=== PATIENT | female | born 1985 | race Asian ===

== ENCOUNTER 2018-10-27 05:50 | Day surgery (SDC) | payer OTHER ==
[~2018-10-27] VITALS: Ht 157.5 cm; Wt 50.8 kg
[2018-10-27] MEDS ORDERED: CEFAZOLIN SOD 1 GM in D5W 50 ML IV ONE (07:00)
[2018-10-27] MEDS ORDERED: LIDOCAINE 2%, 20 ML MDV IM ONE (07:50)
[2018-10-27] MEDS ORDERED: MIDAZOLAM HCL 5 MG/5 ML VIAL IVP ONE (07:50)
[2018-10-27] MEDS ORDERED: fentaNYL CITRATE 250 MCG/5 ML AMP IV ONE (07:50)
[2018-10-27] MEDS ORDERED: SEVOFLURANE 15 MIN GAS INH ONE (07:50)
[2018-10-27] MEDS ORDERED: PHENYLEPHRINE HCL 10 MG/ML VIAL (NEOSYNEPHRINE) IV ONE (07:50)
[2018-10-27] MEDS ORDERED: PROPOFOL 200MG/ 20ML VIAL (DIPRIVAN) IV ONE (07:50)
[2018-10-27] MEDS ORDERED: ONDANSETRON HCL 4 MG/2 ML VIAL IVP ONE (07:50)
[2018-10-27] MEDS ORDERED: BUPIVACAINE /PF 0.5% 30 ML VIAL INJ ONE (07:50)
[2018-10-27] MEDS ORDERED: LR 1,000 ML IV.SOLN IV ONE (07:50)
[2018-10-27] MEDS ORDERED: NS 1000 ML IV.SOLN IV ONE (07:50)
[2018-10-27] MEDS ORDERED: KETOROLAC TROMETHAMINE 30 MG VIAL IVP ONE (07:50)
[2018-10-27] MEDS ORDERED: ROCURONIUM BROMIDE 10 MG/ML (ZEMURON) IV ONE (07:50)
[2018-10-27] MEDS ORDERED: GLYCOPYRROLATE 0.2 MG/ML VIAL IJ ONE (07:50)
[2018-10-27] MEDS ORDERED: HYDROcodone/ACETAMIN 5-325 MG TAB (NORCO/ VICODIN) PO PRN (10:00)
[2018-10-27] MEDS ORDERED: ONDANSETRON HCL 4 MG/2 ML VIAL IVP PRN (10:00)
[2018-10-27] MEDS ORDERED: OXYCODONE/ACETAMINOPHEN 5-325 TABLET PO PRN ×2 (10:00)
[2018-10-27] MEDS ORDERED: MIDAZOLAM HCL 2 MG/2 ML VIAL (VERSED) IVP ONE (10:30)
[2018-10-27] MEDS ORDERED: MIDAZOLAM HCL 2 MG/2 ML VIAL (VERSED) ONE (10:34)
[2018-10-27 11:28] VITALS: BP_SYST 120
[2018-10-27] MEDS ORDERED: HYDROcodone/ACETAMIN 5-325 MG TAB (NORCO/ VICODIN) ONE (12:34)
== END 2018-10-27 14:23 | disposition home or self-care (01) ==
LOC: SDS 05:50 → SMU 05:50 → SDS 14:23
PROVIDERS: ATTEND Specialist
DX: N84.0 Polyp of corpus uteri (principal); N80.1 Endometriosis of ovary; N70.11 Chronic salpingitis
CPT/HCPCS: 58350; 58662; 64486; 88305; C1727; C1782; J0690; J1885; J2001; J2250; J2370; J2405; J2704; J3010; J3465; J3490 ×2; J7030; J7060; J7120

== ENCOUNTER → 2020-04-20 | Outpatient (CLI) | payer OTHER | END | disposition home or self-care (01) | LOC: SLB 12:23 | PROVIDERS: ATTEND Specialist | DX: Z01.818 Encounter for other preprocedural examination (principal); Z11.59 Encounter for screening for other viral diseases | CPT/HCPCS: C9803; U0003 ==

== ENCOUNTER 2020-04-25 07:06 | Day surgery (SDC) | payer OTHER, SELFPAY ==
[2020-04-24 13:09] LABS: BASOPHILS % (AUTO) 0.5 % (0.0-2.0); EOSINOPHILS # (AUTO) 0.4 K/uL (0.0-0.4); EOSINOPHILS % (AUTO) 7.1 % (0.0-4.0); HEMATOCRIT 42.2 % (36-48); LYMPHOCYTES # (AUTO) 1.8 K/uL (1.0-5.5); LYMPHOCYTES % (AUTO) 28.9 % (20.5-51.5); MEAN CORPUSCULAR HEMOGLOBIN 29 pg (27-31); MEAN CORPUSCULAR HGB CONC 33 % (32-36); MEAN CORPUSCULAR VOLUME 88 fL (79.0-98.0); MONOCYTES # (AUTO) 0.4 K/uL (0.0-1.0); MONOCYTES % (AUTO) 5.9 % (1.7-9.3); NEUTROPHILS # (AUTO) 3.5 K/uL (1.8-7.7); NEUTROPHILS % (AUTO) 57.6 % (40.0-70.0); PLATELET COUNT (AUTO) 249 K/uL (130-430); RED CELL DISTRIBUTION WIDTH 13.3 % (9.0-15.0); WHITE BLOOD COUNT (AUTO) 6.1 K/uL (4.8-10.8)
[2020-04-24 14:39] LABS: BILIRUBIN,URINE NEGATIVE (NEGATIVE); BLOOD, URINE 3+ (NEGATIVE); CLARITY/URINE CLEAR (CLEAR); COLOR,URINE ORANGE (YELLOW); GLUCOSE,URINE NEGATIVE (NEGATIVE); KETONES,URINE NEGATIVE (NEGATIVE); LEUKOCYTE ESTERASE ,URINE NEGATIVE (NEGATIVE); NITRITE, URINE NEGATIVE (NEGATIVE); PROTEIN URINE NEGATIVE (NEGATIVE); UROBILINOGEN,URINE 0.2 (0.2-1.0)
[2020-04-24 14:46] LABS: BACTERIA,URINE None Seen /HPF (None Seen); WBC,URINE NONE SEEN /HPF (0-3)
[2020-04-24 14:47] LABS: TRICHOMONAS,URINE None Seen /HPF (None Seen); YEAST,URINE None Seen /HPF (None Seen)
[~2020-04-25] VITALS: Ht 160 cm; Wt 51.7 kg
[2020-04-25] MEDS ORDERED: ONDANSETRON HCL 4 MG/2 ML VIAL IVP PRN ×2 (10:45→11:00)
[2020-04-25] MEDS ORDERED: HYDROmorphone 1 MG INJ. 1 MG/ML AMPUL IVP PRN (10:45)
[2020-04-25] MEDS ORDERED: OXYTOCIN/0.9 % SODIUM CHLORIDE 20 UNITS/1,000 ML BAG IV ONE (10:55)
[2020-04-25] MEDS ORDERED: CEFAZOLIN 1 GM IVPB PREMIX 50 ML IV ONE (10:55)
[2020-04-25] MEDS ORDERED: PROPOFOL 200MG/ 20ML VIAL (DIPRIVAN) IV ONE (10:55)
[2020-04-25] MEDS ORDERED: fentaNYL CITRATE/PF 100 MCG/2 ML AMP ONE (10:55)
[2020-04-25] MEDS ORDERED: LIDOCAINE 1% 10 MG/ML, 20 ML MDV ONE (10:55)
[2020-04-25] MEDS ORDERED: SEVOFLURANE 15 MIN GAS INH ONE (10:55)
[2020-04-25] MEDS ORDERED: HYDROcodone/ACETAMIN 5-325 MG TAB (NORCO/ VICODIN) PO PRN (11:00)
[2020-04-25] MEDS ORDERED: OXYCODONE/ACETAMINOPHEN 5-325 TABLET PO PRN ×2 (11:00)
[2020-04-25 11:50] VITALS: BP_SYST 115
== END 2020-04-25 12:43 | disposition home or self-care (01) ==
LOC: SDS 07:06 → SMU 07:14 → SDS 12:43
PROVIDERS: ATTEND Specialist
DX: O03.9 Complete or unspecified spontaneous abortion without complication (principal); N80.0 Endometriosis of uterus; N92.6 Irregular menstruation, unspecified
CPT/HCPCS: 36415; 59812; 81000; 84703; 85025; 88305; J0690; J2001; J2590; J2704; J3010; J7120

== ENCOUNTER 2021-04-06 10:14 | Observation (INO) | payer OTHER ==
[~2021-04-06] VITALS: Ht 160 cm; Wt 61.2 kg
== END 2021-04-06 11:45 | disposition home or self-care (01) ==
LOC: SPU 10:14
PROVIDERS: ADMIT Specialist; ATTEND Specialist
DX: Z34.83 Encounter for supervision of other normal pregnancy, third trimester (principal); Z3A.35 35 weeks gestation of pregnancy
CPT/HCPCS: G0378

== ENCOUNTER 2021-04-13 11:12 | Observation (INO) | payer OTHER ==
[~2021-04-13] VITALS: Ht 160 cm; Wt 62.1 kg
== END 2021-04-13 13:50 | disposition home or self-care (01) ==
LOC: SPU 11:12
PROVIDERS: ADMIT Specialist; ATTEND Specialist
DX: O36.8130 Decreased fetal movements, third trimester, not applicable or unspecified (principal); Z3A.36 36 weeks gestation of pregnancy
CPT/HCPCS: 81002; G0378

== ENCOUNTER 2021-04-18 06:00 | Inpatient (IN) | payer OTHER, SELFPAY ==
[~2021-04-18] VITALS: Ht 160 cm; Wt 62.1 kg
[2021-04-18] MEDS ORDERED: OXYTOCIN/0.9 % SODIUM CHLORIDE 1,000 ML IV SCH (08:45)
[2021-04-18] MEDS ORDERED: LR 1,000 ML IV ONE (08:45)
[2021-04-18] MEDS ORDERED: NALBUPHINE HCL 10 MG/ML AMP IVP PRN ×2 (08:45→21:45)
[2021-04-18] MEDS ORDERED: TERBUTALINE SULFATE 1 MG/ML VIAL SUBCUT ONE (08:45)
[2021-04-18] MEDS ORDERED: NALBUPHINE HCL 10 MG/ML AMP IM PRN (08:45)
[2021-04-18] MEDS ORDERED: AMPICILLIN SODIUM 2 GM in NS 100 ML IV ONE (08:45)
[2021-04-18 09:07] LABS: BASOPHILS % (AUTO) 0.7 % (0.0-2.0); EOSINOPHILS # (AUTO) 0.2 K/uL (0.0-0.4); EOSINOPHILS % (AUTO) 2.6 % (0.0-4.0); HEMATOCRIT 39.6 % (36-48); HEMOGLOBIN 12.9 g/dL (12.0-16.0); LYMPHOCYTES # (AUTO) 1.3 K/uL (1.0-5.5); LYMPHOCYTES % (AUTO) 19.6 % (20.5-51.5); MEAN CORPUSCULAR HEMOGLOBIN 29 pg (27-31); MEAN CORPUSCULAR HGB CONC 33 % (32-36); MEAN CORPUSCULAR VOLUME 88 fL (79.0-98.0); MONOCYTES # (AUTO) 0.5 K/uL (0.0-1.0); MONOCYTES % (AUTO) 7.5 % (1.7-9.3); NEUTROPHILS # (AUTO) 4.7 K/uL (1.8-7.7); NEUTROPHILS % (AUTO) 69.6 % (40.0-70.0); PLATELET COUNT (AUTO) 197 K/uL (130-430); RED BLOOD CELL COUNT(AUTO) 4.51 MIL/uL (4.2-6.2); RED CELL DISTRIBUTION WIDTH 14.1 % (9.0-15.0); WHITE BLOOD COUNT (AUTO) 6.7 K/uL (4.8-10.8)
[2021-04-18 09:47] LABS: ALBUMIN 2.6 g/dL (3.4-4.8); CALCIUM 8.9 mg/dL (8.4-11.0); CREATININE 0.62 mg/dL (0.55-1.30)
[2021-04-18] MEDS: LR 1,000 ML IV SCH ×2 (09:47→18:34)
[2021-04-18 09:59] LABS: TOTAL BILIRUBIN 0.1 mg/dL (0.0-1.0)
[2021-04-18] MEDS ORDERED: ursodioL 300 MG CAPSULE PO SCH (11:45)
[2021-04-18] MEDS ORDERED: AMPICILLIN SODIUM 1 GM in NS 50 ML IV SCH (12:45)
[2021-04-18] MEDS ORDERED: CEFAZOLIN 2 GM IVPB PREMIX 50 ML IV ONE (20:30)
[2021-04-18 20:44] VITALS: BP_SYST 123
[2021-04-18] MEDS ORDERED: fentaNYL CITRATE/PF 100 MCG/2 ML AMP IVP PRN ×2 (21:45)
[2021-04-18] MEDS ORDERED: DIPHENHYDRAMINE INJ 50 MG/ML VIAL IVP PRN (21:45)
[2021-04-18] MEDS ORDERED: METOCLOPRAMIDE HCL 10 MG/2 ML VIAL IVP PRN (21:45)
[2021-04-18] MEDS ORDERED: KETOROLAC TROMETHAMINE 60 MG/2 ML VIAL IM PRN (21:45)
[2021-04-18] MEDS ORDERED: ONDANSETRON HCL 4 MG/2 ML VIAL IVP PRN ×2 (21:45)
[2021-04-18] MEDS ORDERED: MORPHINE SULFATE 10MG/10ML PF AMP SP SCH (21:45)
[2021-04-18] MEDS ORDERED: NALOXONE HCL 0.4 MG/ML AMP (NARCAN) IVP PRN ×2 (21:45)
[2021-04-18] MEDS ORDERED: THROMBIN (BOVINE) 5000 UNITS/ VIAL TP ONE (21:58)
[2021-04-18] MEDS ORDERED: OXYTOCIN 10 UNIT/ML VIAL ONE (22:02)
[2021-04-18] MEDS ORDERED: TRANEXAMIC ACID 1,000 MG/10 ML VIAL ONE (22:24)
[2021-04-18 22:50] VITALS: BP_SYST 125
[2021-04-19] MEDS ORDERED: DIPH-TET-PERTUS Vaccine 0.5 ML VIAL (ADACEL) I.M. PRN (01:15)
[2021-04-19] MEDS ORDERED: LR 1,000 ML IV SCH (01:15)
[2021-04-19] MEDS ORDERED: OXYTOCIN/0.9 % SODIUM CHLORIDE 1,000 ML IV ONE (01:15)
[2021-04-19] MEDS ORDERED: LANOLIN 7 GM OINT. TP PRN (01:15)
[2021-04-19] MEDS: DOCUSATE SODIUM 100 MG CAPSULE PO SCH ×2 (08:19→21:15)
[2021-04-19] MEDS: OXYCODONE/ACETAMINOPHEN 5-325 TABLET PO PRN ×4 (08:21→21:06)
[2021-04-19] MEDS: SIMETHICONE 80 MG TAB.CHEW PO PRN ×2 (08:26→21:17)
[2021-04-19 13:44] LABS: BASOPHILS % (AUTO) 0.3 % (0.0-2.0); EOSINOPHILS # (AUTO) 0.1 K/uL (0.0-0.4); EOSINOPHILS % (AUTO) 1.2 % (0.0-4.0); HEMATOCRIT 31.6 % (36-48); HEMOGLOBIN 10.7 g/dL (12.0-16.0); LYMPHOCYTES # (AUTO) 1.2 K/uL (1.0-5.5); LYMPHOCYTES % (AUTO) 14.6 % (20.5-51.5); MEAN CORPUSCULAR HEMOGLOBIN 30 pg (27-31); MEAN CORPUSCULAR HGB CONC 34 % (32-36); MEAN CORPUSCULAR VOLUME 87 fL (79.0-98.0); MONOCYTES # (AUTO) 0.5 K/uL (0.0-1.0); MONOCYTES % (AUTO) 6.2 % (1.7-9.3); NEUTROPHILS # (AUTO) 6.5 K/uL (1.8-7.7); NEUTROPHILS % (AUTO) 77.7 % (40.0-70.0); PLATELET COUNT (AUTO) 149 K/uL (130-430); RED BLOOD CELL COUNT(AUTO) 3.61 MIL/uL (4.2-6.2); RED CELL DISTRIBUTION WIDTH 13.9 % (9.0-15.0); WHITE BLOOD COUNT (AUTO) 8.4 K/uL (4.8-10.8)
[2021-04-19] MEDS ORDERED: TEMAZEPAM 15 MG CAPSULE PO PRN (21:00)
[2021-04-20] MEDS: OXYCODONE/ACETAMINOPHEN 5-325 TABLET PO PRN ×3 (03:38→19:56)
[2021-04-20] MEDS: SIMETHICONE 80 MG TAB.CHEW PO PRN (03:43)
[2021-04-20] MEDS ORDERED: SENNOSIDES/DOCUSATE SODIUM 1 TAB TABLET(SENOKOT-S) PO SCH (06:00)
[2021-04-20] MEDS: IBUPROFEN 800 MG TABLET PO PRN ×4 (06:34→18:11)
[2021-04-20] MEDS: DOCUSATE SODIUM 100 MG CAPSULE PO SCH ×2 (08:46→19:57)
[2021-04-21] MEDS: IBUPROFEN 800 MG TABLET PO PRN ×4 (00:03→17:49)
[2021-04-21] MEDS: OXYCODONE/ACETAMINOPHEN 5-325 TABLET PO PRN ×3 (03:54→20:07)
[2021-04-21] MEDS: SIMETHICONE 80 MG TAB.CHEW PO PRN (06:35)
[2021-04-21] MEDS: DOCUSATE SODIUM 100 MG CAPSULE PO SCH ×2 (12:19→21:08)
[2021-04-22] MEDS: IBUPROFEN 800 MG TABLET PO PRN ×2 (00:24→06:16)
[2021-04-22] MEDS: OXYCODONE/ACETAMINOPHEN 5-325 TABLET PO PRN (04:15)
[2021-04-22] MEDS: SIMETHICONE 80 MG TAB.CHEW PO PRN (06:17)
== END 2021-04-22 07:20 | disposition home or self-care (01) | DRG 788 ==
LOC: SPU 06:00 → OBSVTOIN 08:45 → SPU 23:29
PROVIDERS: ADMIT Specialist; ATTEND Specialist
PROC: 10D00Z1 Extraction of Products of Conception, Low, Open Approach (ICD-10-PCS; principal; 2021-04-18 21:00)
DX: O44.53 Low lying placenta with hemorrhage, third trimester (principal); D25.9 Leiomyoma of uterus, unspecified; Z20.822 Contact with and (suspected) exposure to COVID-19; O34.13 Maternal care for benign tumor of corpus uteri, third trimester; Z3A.36 36 weeks gestation of pregnancy; Q89.9 Congenital malformation, unspecified; Z37.0 Single live birth
CPT/HCPCS: 36415; 76815; 80053; 85025; 86592; 86886; 86900; 86901; 86920; G0378; J0290; J0690; J1200; J1885; J2590; J3490

== ENCOUNTER 2021-09-20 09:34 | Outpatient (CLI) | payer OTHER | END 2021-09-20 19:24 | disposition home or self-care (01) | LOC: SUS 09:34 | PROVIDERS: ATTEND Specialist | DX: D25.9 Leiomyoma of uterus, unspecified (principal); N83.202 Unspecified ovarian cyst, left side; N83.201 Unspecified ovarian cyst, right side | CPT/HCPCS: 76830-TC; 76857 ==